=== PATIENT | female | born 1975 | race Caucasian/White ===

== ENCOUNTER 2021-10-08 14:46 | Emergency (ER) | payer SELFPAY ==
[~2021-10-08] VITALS: Ht 160 cm; Wt 72.7 kg
[~2021-10-08 14:46] MED LIST: PRED50TA PO
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
[2021-10-08] MEDS ORDERED: ORPHENADRINE CITRATE 60 MG/2 ML VIAL. IM ONE (15:15)
[2021-10-08] MEDS ORDERED: KETOROLAC 60 MG/2 ML VIAL. IM ONE (15:15)
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
[2021-10-08] MEDS ORDERED: CYCL5TAB PO (15:45)
[2021-10-08 16:20] VITALS: BP 133/74
== END 2021-10-08 16:20 | disposition home or self-care (01) ==
LOC: ER 14:46
DX: M25.511 Pain in right shoulder (principal); M25.551 Pain in right hip; V89.2XXA Person injured in unspecified motor-vehicle accident, traffic, initial encounter; Y93.I9 Activity, other involving external motion; Y92.89 Other specified places as the place of occurrence of the external cause; Y99.8 Other external cause status
CPT/HCPCS: 73030; 73502; 81025; 96372; 99284; J1885; J2360